=== PATIENT | male | born 1960 | race Caucasian/White ===

== ENCOUNTER 2019-02-07 05:35 | Emergency (ER) | payer BC ==
[2019-02-07] MEDS ORDERED: Ondansetron INJ* 2 MG/ML VIAL IV ONE (06:32)
[2019-02-07] MEDS ORDERED: Morphine 4 MG/ML VIAL (1 ml) 4 MG/ML VIAL IV ONE (06:32)
[2019-02-07] MEDS ORDERED: NS 0.9% 1000 ML** 1,000 ML IV ONE ×2 (06:38→09:27)
[2019-02-07 07:04] LABS: ABS Basophils 0.1 10^3/ul (0-0.2); ABS Lymphocytes 0.9 10^3/ul (1.0-4.8); ABS Monocytes 0.7 10^3/ul (0-0.8); ABS Neutrophils 9.7 10^3/ul (1.5-7.7); Eosinophil % 0.1 %; Hematocrit 40 % (42-52); Hemoglobin 13.9 g/dL (14.0-18.0); Lymphocyte % 8.2 %; Mean Corpuscular HGB Conc 35 g/dL (31-36); Mean Corpuscular Hemoglobin 33 pg (27-31); Mean Corpuscular Volume 94 fL (80-94); Platelet Count 194 10^3/uL (150-450); Red Blood Count 4.22 10^6 /uL (4.18-5.48); Red Cell Distribution Width 13 % (10-15); White Blood Count 11.4 10^3/uL (3.5-10.8)
[2019-02-07 07:28] LABS: Albumin 4.5 g/dL (3.2-5.2); Albumin/Globulin Ratio 1.4 (1-3); C Reactive Protein 5.1 mg/L (<8.01); Calcium 9.5 mg/dL (8.6-10.3); Globulin 3.3 g/dL (2-4); Magnesium 1.7 mg/dL (1.9-2.7); Potassium 4.3 mmol/L (3.5-5.0); Total Bilirubin 0.8 mg/dL (0.2-1.0); Total Protein 7.8 g/dL (6.4-8.9)
[2019-02-07] MEDS ORDERED: HYDROmorphone INJ* 0.5 MG/0.5 ML SYRINGE IV ONE (07:49)
[2019-02-07] MEDS ORDERED: Iohexol 300* (CONTRAST) 10 ML SDV IV ONE (07:59)
--- NOTE | 2019-02-07 08:37 | ED ---
Abdominal Pain/Male - HPI Summary HPI Summary: This patient is a 58-year-old otherwise healthy male presenting to the ED with left lower quadrant pain since last evening. He states he has never had this pain before. He denies any pain to the inguinal region or testicular region. Denies any urinary symptoms including signs of obstruction. Denies any flank pain bilaterally. No fevers, sweats, chills. Patient endorses a 8/10 pain, constant and stabbing to the LLQ without radiation. Last bowel movement was yesterday morning and was normal. No diarrhea, constipation or vomiting, however he does endorse some nausea. He has never had anything like this before. No current modifying factors. - History of Current Complaint Chief Complaint: EDAbdPain Stated Complaint: ABD PAIN PER PT Time Seen by Provider: 02/07/19 06:22 Hx Obtained From: Patient Onset/Duration: Sudden Onset Timing: Constant Severity Initially: Moderate Severity Currently: Moderate Pain Intensity: 8 Pain Scale Used: 0-10 Numeric Location: Discrete At: LLQ Radiates: No Character: Sharp Aggravating Factor(s): Nothing Alleviating Factor(s): Nothing Associated Signs And Symptoms: Positive: Negative - Allergies/Home Medications Allergies/Adverse Reactions: Allergies Allergy/AdvReac Type Severity Reaction Status Date / Time No Known Allergies Allergy Verified 02/07/19 05:37 Home Medications: Home Medications amLODIPine TAB* [Norvasc 5 mg TAB*] 5 mg PO DAILY 02/07/19 [History Confirmed ] PMH/Surg Hx/FS Hx/Imm Hx Previously Healthy: Yes Endocrine/Hematology History: Denies: Hx Diabetes Cardiovascular History: Denies: Hx Hypertension History: Denies: Hx Renal Disease Sensory History: Denies: Hx Contacts or Glasses, Hx Hearing Aid Opthamlomology History: Denies: Hx Contacts or Glasses - Immunization History Hx Pertussis Vaccination: No Immunizations Up to Date: Yes Infectious Disease History: No Infectious Disease History: Denies: Traveled Outside the [place] in Last 30 Days - Social History Occupation: Employed Full-time Lives: With Family Alcohol Use: None Hx Substance Use: Yes Substance Use Type: Reports: Marijuana Substance Use Comment - Amount & Last Used: USUALLY EVERY NIGHT Hx Tobacco Use: No Smoking Status (MU): Former Smoker Amount Used/How Often: 1 PPD Have You Smoked in the Last Year: No Review of Systems Negative: Fever, Chills, Fatigue, Skin Diaphoresis Cardiovascular: Other - flexion Negative: Palpitations, Chest Pain Negative: Shortness Of Breath, Cough Positive: Abdominal Pain, Nausea Genitourinary: Negative Positive: no symptoms reported, see HPI Negative: Arthralgia, Myalgia Skin: Negative All Other Systems Reviewed And Are Negative: Yes Physical Exam Triage Information Reviewed: Yes Vital Signs On Initial Exam: Initial Vitals Temp Pulse Resp BP Pulse Ox 98.8 F 72 15 189/95 97 02/07/19 05:36 02/07/19 05:36 02/07/19 05:36 02/07/19 05:36 02/07/19 05:36 Vital Signs Reviewed: Yes Appearance: Positive: Well-Appearing, Well-Nourished Skin: Positive: Warm, Skin Color Reflects Adequate Perfusion Head/Face: Positive: Normal Head/Face Inspection Eyes: Positive: EOMI, GONZALO, Conjunctiva Clear Neck: Positive: Supple, No Lymphadenopathy Respiratory/Lung Sounds: Positive: Clear to Auscultation, Breath Sounds Present , Decreased Breath Sounds Cardiovascular: Positive: RRR, Pulses are Symmetrical in both Upper and Lower Extremities Musculoskeletal: Positive: Normal, Strength/ROM Intact Neurological: Positive: Speech Normal Psychiatric: Positive: Affect/Mood Appropriate AVPU Assessment: Alert Procedures - Sedation Patient Received Moderate/Deep Sedation with Procedure: No Diagnostics - Vital Signs Vital Signs Temp Pulse Resp BP Pulse Ox 02/07/19 07:57 18 02/07/19 07:20 93 172/89 97 02/07/19 07:00 76 93 02/07/19 06:50 78 172/99 96 02/07/19 06:47 73 97 02/07/19 06:43 16 02/07/19 05:36 98.8 F 72 15 189/95 97 - Laboratory Lab Results: Lab Results 02/07/19 02/07/19 02/07/19 Range/Units 06:51 06:51 06:51 WBC 11.4 H (3.5-10.8) 10^3/uL RBC 4.22 (4.18-5.48) 10^6 /uL Hgb 13.9 L (14.0-18.0) g/dL Hct 40 L (42-52) % MCV 94 (80-94) fL MCH 33 H (27-31) pg MCHC 35 (31-36) g/dL RDW 13 (10-15) % Plt Count 194 (150-450) 10^3/uL MPV 9.0 (7.4-10.4) fL Neut % (Auto) 84.6 % Lymph % (Auto) 8.2 % [place] % (Auto) 6.5 % Eos % (Auto) 0.1 % Baso % (Auto) 0.6 % Absolute Neuts (auto) 9.7 H (1.5-7.7) 10^3/ul Absolute Lymphs (auto) 0.9 L (1.0-4.8) 10^3/ul Absolute Monos (auto) 0.7 (0-0.8) 10^3/ul Absolute Eos (auto) 0.0 (0-0.6) 10^3/ul Absolute Basos (auto) 0.1 (0-0.2) 10^3/ul Absolute Nucleated RBC 0.0 10^3/ul Nucleated RBC % 0.0 Sodium 131 L (135-145) mmol/L Potassium 4.3 (3.5-5.0) mmol/L Chloride 97 L (101-111) mmol/L Carbon Dioxide 23 (22-32) mmol/L Anion Gap 11 (2-11) mmol/L BUN 12 (6-24) mg/dL Creatinine 1.20 H (0.67-1.17) mg/dL Est GFR ( Amer) 75.0 (>60) Est GFR (Non-Af Amer) 62.0 (>60) BUN/Creatinine Ratio 10.0 (8-20) Glucose 112 H (70-100) mg/dL Lactic Acid 2.2 H* (0.5-2.0) mmol/L Calcium 9.5 (8.6-10.3) mg/dL Magnesium 1.7 L (1.9-2.7) mg/dL Total Bilirubin 0.80 (0.2-1.0) mg/dL AST 27 (13-39) U/L ALT 33 (7-52) U/L Alkaline Phosphatase 91 (34-104) U/L C-Reactive Protein 5.10 (<8.01) mg/L Total Protein 7.8 (6.4-8.9) g/dL Albumin 4.5 (3.2-5.2) g/dL Globulin 3.3 (2-4) g/dL Albumin/Globulin Ratio 1.4 (1-3) Lipase 23 (11.0-82.0) U/L Result Diagrams: 02/07/19 06:51 02/07/19 06:51 Lab Statement: Any lab studies that have been ordered have been reviewed, and results considered in the medical decision making process. Re-Evaluation - Re-Evaluation First Eval Change: Unchanged - unchanged following morphine Second Eval Change: Improved - improved with dilauded Abdominal Pain Male Course/Dx - Course Course Of Treatment: During course of treatment, the patient is evaluated for LLQ pain which is nonradiating. Patient states he has had this pain since last evening, constant and stabbing. Denies any fevers, sweats, chills. Denies any urinary symptoms including obstructive symptoms. Denies any gross hematuria. He has never had a history of diverticulitis or kidney stones. Patient is a smoker, alcohol daily use. Labs obtained which shows slightly elevated white count of 11,000. Lactic acid 2.2, sodium 131. Patient is repleted with 2 L fluids, and also given morphine and Zofran on arrival. This did not improve his symptoms and he was subsequently given Dilaudid 0.5. UA obtained: 3+ RBC's without evidence of infection. CT obtained:IMPRESSION: 1. THERE IS A 5 MM CALCULUS AT THE LEFT URETEROVESICAL JUNCTION CAUSING MODERATE HYDRONEPHROSIS. 2. THERE IS MILD THICKENING OF THE WALL OF THE DISTAL DESCENDING AND PROXIMAL SIGMOID COLON NONSPECIFIC ALTHOUGH SUGGESTIVE OF COLITIS. CONSIDER A FOLLOW-UP COLONOSCOPY. 3. MILD HEPATOMEGALY AND HEPATIC STEATOSIS. 4. THERE IS A 5 MM NODULE IN THE LEFT LOWER LOBE. IF THE PATIENT HAS RISK FACTORS RECOMMEND A FOLLOW-UP LOW-DOSE NONCONTRAST CT OF THE CHEST IN ONE YEARS TIME. Discussed results with pt. Strainer given. Continues to be in pain, but mild and much improved since arrival. Pain management and zofran given as RX. Pt will strain urine and call urology today to make an appt. Return precautions given. VS stable. - Diagnoses Differential Diagnosis/HQI/PQRI: Constipation, Diverticulitis, Renal Colic, Ureteral Stone, Urinary Tract Infection Provider Diagnoses: Kidney stone Discharge ED - Sign-Out/Discharge Documenting (check all that apply): Patient Departure - Discharge Plan Condition: Stable Disposition: HOME Prescriptions: Hydrocodone/Acetamin 10/325(NF [[place] 10/325 (NF)] 1 tab PO Q6H #12 tab MDD 4 Ondansetron ODT TAB* [Zofran 4 MG Odt TAB*] 4 mg PO Q6H PRN #12 tab.odt MDD 4 PRN Reason: Nausea Patient Education Materials: Kidney Stones (ED), How to Strain Your Urine (ED) Referrals: Calvin Jackson MD [Primary Care Provider] - Norberto Sánchez MD [Medical Doctor] - Additional Instructions: You were seen in the Emergency Department for abdominal pain Strain urine Follow up with Dr. Sánchez - call today to make an appt Drink plenty of fluids Hydrocodone four times daily as needed for pain Zofran as needed for nausea/vomiting If you develop any worsening or changing symptoms, please return to the ED Please follow up with your primary care provider in the next 2-3 days It was a pleasure taking care of you today - Billing Disposition and Condition Condition: STABLE Disposition: Home
[2019-02-07 10:18] LABS: Urine Appearance Cloudy; Urine Bacteria Absent (Absent); Urine Bilirubin Negative (Negative); Urine Blood 3+ (Negative); Urine Color Straw; Urine Glucose Negative (Negative); Urine Ketones Negative (Negative); Urine Nitrite Negative (Negative); Urine Protein Negative (Negative); Urine Red Blood Cell 3+(>10/hpf) (Absent); Urine Uric Acid Crystals Present (Absent); Urine Urobilinogen Negative (Negative); Urine White Blood Cell Absent (Absent)
[2019-02-07 10:57] VITALS: BP 157/79
== END 2019-02-07 10:55 | disposition home or self-care (01) ==
LOC: ED 05:35
DX: N20.0 Calculus of kidney (principal); R10.32 Left lower quadrant pain; F17.210 Nicotine dependence, cigarettes, uncomplicated; Z79.899 Other long term (current) drug therapy; R11.0 Nausea
CPT/HCPCS: 36415; 74177; 80053; 81003; 81015; 83605; 83690; 83735; 85025; 86140; 96374; 96375; 99284; J1170; J2270; J2405; Q9967